=== PATIENT | female | born 1985 | race Caucasian/White ===

== ENCOUNTER 2017-05-17 06:39 | Observation (INO) | payer OTHER ==
[2017-05-17 07:06] LABS: PLATELET COUNT 277 10^3/uL (150-400)
[2017-05-17] MEDS ORDERED: ONDANSETRON 4 MG/2 ML VIAL IVP ONE (07:07)
[2017-05-17] MEDS ORDERED: NS 1,000 ML IV ONE ×2 (07:07→12:19)
[2017-05-17] MEDS ORDERED: HYDROmorphONE/DILAUDID 1 MG/ML INJ IVP ONE (07:07)
--- NOTE | 2017-05-17 07:10 | EDPHY ---
H & P Stated Complaint: R sided stabbing abd pain since 1900 last night with nausea. 8 /10 pain. Time Seen by Provider: 05/17/17 07:01 HPI/ROS: CHIEF COMPLAINT: Abdominal pain HISTORY OF PRESENT ILLNESS: The patient is a 32-year-old female who comes to the emergency department complaining of stabbing abdominal pain. She states that it began last night at 7:00 p.m. It is not been fluctuating but has been constant. She has felt slightly nauseous but has not vomited. No diarrhea. No fever. No urinary symptoms. She did start her period 2 days ago and thought initially that this was the cause but she has never had anything like this before. No history of abdominal surgery. She is monogamous denies any room risk for STD. No discharge. She is a difficult time telling where the pain is generated from. She states that hurts in her right upper quadrant, her right lower quadrant and bilateral CVA. REVIEW OF SYSTEMS: Constitutional: denies: chills, fever, recent illness, recent injury EENTM: denies: blurred vision, double vision, nose congestion Respiratory: denies: cough, shortness of breath Cardiac: denies: chest pain, irregular heart rate, lightheadedness, palpitations Gastrointestinal/Abdominal: See HPI Genitourinary: denies: dysuria, frequency, hematuria, pain Musculoskeletal: denies: joint pain, muscle pain Skin: denies: lesions, rash, jaundice, bruising Neurological: denies: headache, numbness, paresthesia, tingling, dizziness, weakness Hematologic/Lymphatic: denies: blood clots, easy bleeding, easy bruising Immunologic/allergic: denies: HIV/AIDS, transplant EXAM: GENERAL: Well-appearing, well-nourished and in no acute distress. HEAD: Atraumatic, normocephalic. EYES: Pupils equal round and reactive to light, extraocular movements intact, sclera anicteric, conjunctiva are normal. ENT: TMs normal, nares patent, oropharynx clear without exudates. Moist mucous membranes. NECK: Normal range of motion, supple without lymphadenopathy or JVD. LUNGS: Breath sounds clear to auscultation bilaterally and equal. No wheezes rales or rhonchi. HEART: Regular rate and rhythm without murmurs, rubs or gallops. ABDOMEN: Mild right upper quadrant tenderness, no right lower quadrant tenderness, no CVA tenderness. No guarding or rebound no rash BACK: No CVA tenderness, no spinal tenderness, step-offs or deformities EXTREMITIES: Normal range of motion, no pitting or edema. No clubbing or cyanosis. NEUROLOGICAL: Cranial nerves II through XII grossly intact. Normal speech, normal gait. 5/5 strength, normal movement in all extremities, normal sensation PSYCH: Normal mood, normal affect. SKIN: Warm, dry, normal turgor, no visible rashes or lesions. Source: Patient, Family Exam Limitations: No limitations - Personal History LMP (Females 10-55): 1-7 Days Ago Current Tetanus Diphtheria and Acellular Pertussis (TDAP): Unsure - Medical/Surgical History Hx Asthma: No Hx Chronic Respiratory Disease: No Hx Diabetes: No Hx Cardiac Disease: No Hx Renal Disease: No Hx Cirrhosis: No Hx Alcoholism: No Hx HIV/AIDS: No Hx Splenectomy or Spleen Trauma: No Other PMH: none - Family History Significant Family History: No pertinent family hx - Social History Smoking Status: Never smoked Alcohol Use: Sober Drug Use: None Constitutional: Initial Vital Signs Temperature (C) 36.5 C 05/17/17 06:48 Heart Rate 94 05/17/17 06:48 Respiratory Rate 16 05/17/17 06:48 Blood Pressure 119/80 05/17/17 06:48 O2 Sat (%) 98 05/17/17 06:48 O2 Delivery Mode Room Air Allergies/Adverse Reactions: No Known Allergies Allergy (Unverified 05/17/17 06:47) Home Medications: Medication Instructions Recorded Ibuprofen [Motrin (*)] 200 mg PO DAILY PRN 05/17/17 Medical Decision Making - Diagnostics Imaging Results: Imaging Impressions Abdomen Ultrasound 05/17/17 07:07 Impression: Indeterminate exam. Appendicolith versus gas within base of the appendix and the tip of the appendix cannot be diagnostically characterized. Findings discussed with Emergency Department physician, Priyank Kimball on 2017 at 9:17 a.m. Pelvic/Renal Ultrasound 05/17/17 07:07 Impression: 1. Normal uterus. 2. Normal ovaries. No ovarian cyst or evidence of torsion. Findings discussed with Emergency Department physicianPriyank on 2017 at 9:[address] 05/17/17 09:17 Impression: 1. Appendicitis with appendicolith and free fluid. 2. No abscess or pneumoperitoneum. Findings discussed with Emergency Department physician, Priyank Kimball, on at 10:14 a.m. Imaging: Discussed imaging studies w/ callisthenics instructor Radiologist ED Course/Re-evaluation: 9:15 a.m. we discussed the patient's test results. Her lab work is reassuring. Her ultrasound of her gallbladder and pelvis reassuring however her appendix is inconclusive and there may be an EpiPen equal at the base versus gas in small bowel. On re-evaluation the patient does have tenderness now more focused in the right lower quadrant. Will obtain a CT scan for further delineation. 10:15 p.m. we discussed the CT results. I will paged surgery and start antibiotics. Differential Diagnosis: Partial list of the Differential diagnosis considered include but were not limited to; appendicitis, ovarian cyst, pyelonephritis, biliary disease and although unlikely based on the history and physical exam, I also considered , constipation. - Data Points Laboratory Results: Laboratory Results 05/17/17 06:56 05/17/17 06:56 05/17/17 05/17/17 05/17/17 07:15 06:56 06:56 WBC RBC Hgb Hct MCV MCH MCHC RDW Plt Count MPV Neut % (Auto) Lymph % (Auto) [place] % (Auto) Eos % (Auto) Baso % (Auto) Nucleat RBC Rel Count Absolute Neuts (auto) Absolute Lymphs (auto) Absolute Monos (auto) Absolute Eos (auto) Absolute Basos (auto) Absolute Nucleated RBC Immature Gran % Immature Gran # Sodium 141 mEq/L mEq/L (135-145) Potassium 4.3 mEq/L mEq/L (3.5-5.2) Chloride 101 mEq/L mEq/L (97-110) Carbon Dioxide 24 mEq/l mEq/l (22-31) Anion Gap 16 mEq/L mEq/L (8-16) BUN 6 mg/dL L mg/dL (7-23) Creatinine 0.6 mg/dL mg/dL (0.6-1.0) Estimated GFR > 60 Glucose 98 mg/dL mg/dL (70-100) Calcium 10.1 mg/dL mg/dL (8.5-10.4) Beta HCG, Qual NEGATIVE Urine Color YELLOW Urine Appearance CLEAR Urine pH 6.5 (5.0-7.5) Ur Specific [place] <= 1.005 (1.002-1.030) Urine Protein NEGATIVE (NEGATIVE) Urine Ketones NEGATIVE (NEGATIVE) Urine Blood 1+ H (NEGATIVE) Urine Nitrate NEGATIVE (NEGATIVE) Urine Bilirubin NEGATIVE (NEGATIVE) Urine Urobilinogen 0.2 EU EU (0.2-1.0) Ur Leukocyte Esterase NEGATIVE (NEGATIVE) Urine RBC 3-5 /hpf H /hpf (0-3) Urine WBC 0-1 /hpf /hpf (0-3) Ur Epithelial Cells TRACE /lpf /lpf (NONE-1+) Urine Bacteria TRACE /hpf H /hpf (NONE SEEN) Urine Glucose NEGATIVE (NEGATIVE) 05/17/17 06:56 WBC 7.04 10^3/uL 10^3/uL (3.80-9.50) RBC 4.54 10^6/uL 10^6/uL (4.18-5.33) Hgb 14.1 g/dL g/dL (12.6-16.3) Hct 41.8 % % (38.0-47.0) MCV 92.1 fL fL (81.5-99.8) MCH 31.1 pg pg (27.9-34.1) MCHC 33.7 g/dL g/dL (32.4-36.7) RDW 11.9 % % (11.5-15.2) Plt Count 277 10^3/uL 10^3/uL (150-400) MPV 8.8 fL fL (8.7-11.7) Neut % (Auto) 77.2 % H % (39.3-74.2) Lymph % (Auto) 14.8 % L % (15.0-45.0) [place] % (Auto) 6.3 % % (4.5-13.0) Eos % (Auto) 1.1 % % (0.6-7.6) Baso % (Auto) 0.3 % % (0.3-1.7) Nucleat RBC Rel Count 0.0 % % (0.0-0.2) Absolute Neuts (auto) 5.44 10^3/uL 10^3/uL (1.70-6.50) Absolute Lymphs (auto) 1.04 10^3/uL 10^3/uL (1.00-3.00) Absolute Monos (auto) 0.44 10^3/uL 10^3/uL (0.30-0.80) Absolute Eos (auto) 0.08 10^3/uL 10^3/uL (0.03-0.40) Absolute Basos (auto) 0.02 10^3/uL 10^3/uL (0.02-0.10) Absolute Nucleated RBC 0.00 10^3/uL 10^3/uL (0-0.01) Immature Gran % 0.3 % % (0.0-1.1) Immature Gran # 0.02 10^3/uL 10^3/uL (0.00-0.10) Sodium Potassium Chloride Carbon Dioxide Anion Gap BUN Creatinine Estimated GFR Glucose Calcium Beta HCG, Qual Urine Color Urine Appearance Urine pH Ur Specific [place] Urine Protein Urine Ketones Urine Blood Urine Nitrate Urine Bilirubin Urine Urobilinogen Ur Leukocyte Esterase Urine RBC Urine WBC Ur Epithelial Cells Urine Bacteria Urine Glucose Medications Given: Discontinued Medications Ertapenem (Invanz) 1 gm IVP EDNOW ONE PRN Reason: Protocol Stop: 05/17/17 10:17 Last Admin: 05/17/17 10:27 Dose: 1 gm Hydromorphone HCl (Dilaudid) 0.5 mg IVP EDNOW ONE Stop: 05/17/17 07:08 Last Admin: 05/17/17 08:05 Dose: 0.5 mg Sodium Chloride (Ns) 1,000 mls @ 0 mls/hr IV EDNOW ONE; Wide Open PRN Reason: Protocol Stop: 05/17/17 07:08 Last Admin: 05/17/17 08:00 Dose: 1,000 mls Lactated Ringer's (Lr) 1,000 mls @ 0 mls/hr IV ONCE ONE PRN Reason: As Directed Stop: 05/17/17 12:28 Last Admin: 05/17/17 12:35 Dose: 1,000 mls Ketorolac Tromethamine (Toradol) 30 mg IVP EDNOW ONE Stop: 05/17/17 08:39 Last Admin: 05/17/17 08:41 Dose: 30 mg Ondansetron HCl (Zofran) 4 mg IVP EDNOW ONE Stop: 05/17/17 07:08 Last Admin: 05/17/17 08:02 Dose: 4 mg Departure - Departure Disposition: [facility] Acute Clinical Impression: Acute appendicitis Qualifiers: Acute appendicitis type: with localized peritonitis Qualified Code(s): K35.3 - Acute appendicitis with localized peritonitis Condition: Fair
[2017-05-17] MEDS ORDERED: KETOROLAC 30 MG/1 ML SDV IVP ONE (08:38)
[2017-05-17] MEDS ORDERED: IOPAMIDOL (ISOVUE-300) 100 ML BTL ONE (09:46)
[2017-05-17] MEDS ORDERED: ERTAPENEM 1 GM VIAL IVP ONE (10:16)
[2017-05-17] MEDS ORDERED: LR 1,000 ML IV ONE (12:27)
--- NOTE | 2017-05-17 12:49 | PDGENHP ---
History and Physical - Chief Complaint abd pain - History of Present Illness 32 y/o female with one day hx abd pain localizing to the RLQ. Pt was seen at [facility] [place] and referred by Dr. Kimball for surgical consultation. History Information - Allergies/Home Medication List Allergies/Adverse Reactions: No Known Allergies Allergy (Unverified 05/17/17 06:47) Home Medications: NK [No Known Home Meds] 05/17/17 [Last Taken Unknown] I have personally reviewed and updated: family history, medical history, social history, surgical history - Past Medical History no pertinent PMH - Surgical History Additional surgical history: breast biopsy/wisdom teeth - Social History Smoking Status: Never smoked Alcohol Use: Sober Drug Use: None Review of Systems Review of Systems: Constitutional: Reports: no symptoms EENMT: Reports: no symptoms Cardiac: Reports: no symptoms Respiratory: Reports: no symptoms Gastrointestinal: Reports: abdominal pain Genitourinary: Reports: other (currently menstuating) Physical Exam Physical Exam: Temp Pulse Resp BP Pulse Ox 36.8 C 90 16 104/69 98 05/17/17 12:11 05/17/17 12:11 05/17/17 12:11 05/17/17 12:11 05/17/17 12:11 Constitutional: no apparent distress Eyes: anicteric sclera Cardiovascular: regular rate and rhythym Respiratory: no rales or rhonchi, clear to auscultation Gastrointestinal: other (soft/hypoactive bowel sounds/tender RLQ with guarding/ + Rovsing's) Psychiatric: interacting appropriately, not anxious Lab Data & Imaging Review 05/17/17 06:56 05/17/17 06:56 WBC 7.04 10^3/uL (3.80-9.50) 05/17/17 06:56 RBC 4.54 10^6/uL (4.18-5.33) 05/17/17 06:56 Hgb 14.1 g/dL (12.6-16.3) 05/17/17 06:56 Hct 41.8 % (38.0-47.0) 05/17/17 06:56 MCV 92.1 fL (81.5-99.8) 05/17/17 06:56 MCH 31.1 pg (27.9-34.1) 05/17/17 06:56 MCHC 33.7 g/dL (32.4-36.7) 05/17/17 06:56 RDW 11.9 % (11.5-15.2) 05/17/17 06:56 Plt Count 277 10^3/uL (150-400) 05/17/17 06:56 MPV 8.8 fL (8.7-11.7) 05/17/17 06:56 Neut % (Auto) 77.2 % (39.3-74.2) H 05/17/17 06:56 Lymph % (Auto) 14.8 % (15.0-45.0) L 05/17/17 06:56 [place] % (Auto) 6.3 % (4.5-13.0) 05/17/17 06:56 Eos % (Auto) 1.1 % (0.6-7.6) 05/17/17 06:56 Baso % (Auto) 0.3 % (0.3-1.7) 05/17/17 06:56 Nucleat RBC Rel Count 0.0 % (0.0-0.2) 05/17/17 06:56 Absolute Neuts (auto) 5.44 10^3/uL (1.70-6.50) 05/17/17 06:56 Absolute Lymphs (auto) 1.04 10^3/uL (1.00-3.00) 05/17/17 06:56 Absolute Monos (auto) 0.44 10^3/uL (0.30-0.80) 05/17/17 06:56 Absolute Eos (auto) 0.08 10^3/uL (0.03-0.40) 05/17/17 06:56 Absolute Basos (auto) 0.02 10^3/uL (0.02-0.10) 05/17/17 06:56 Absolute Nucleated RBC 0.00 10^3/uL (0-0.01) 05/17/17 06:56 Immature Gran % 0.3 % (0.0-1.1) 05/17/17 06:56 Immature Gran # 0.02 10^3/uL (0.00-0.10) 05/17/17 06:56 Sodium 141 mEq/L (135-145) 05/17/17 06:56 Potassium 4.3 mEq/L (3.5-5.2) 05/17/17 06:56 Chloride 101 mEq/L (97-110) 05/17/17 06:56 Carbon Dioxide 24 mEq/l (22-31) 05/17/17 06:56 Anion Gap 16 mEq/L (8-16) 05/17/17 06:56 BUN 6 mg/dL (7-23) L 05/17/17 06:56 Creatinine 0.6 mg/dL (0.6-1.0) 05/17/17 06:56 Estimated GFR > 60 05/17/17 06:56 Glucose 98 mg/dL (70-100) 05/17/17 06:56 Calcium 10.1 mg/dL (8.5-10.4) 05/17/17 06:56 Beta HCG, Qual NEGATIVE 05/17/17 06:56 Urine Color YELLOW 05/17/17 07:15 Urine Appearance CLEAR 05/17/17 07:15 Urine pH 6.5 (5.0-7.5) 05/17/17 07:15 Ur Specific [place] <= 1.005 (1.002-1.030) 05/17/17 07:15 Urine Protein NEGATIVE (NEGATIVE) 05/17/17 07:15 Urine Ketones NEGATIVE (NEGATIVE) 05/17/17 07:15 Urine Blood 1+ (NEGATIVE) H 05/17/17 07:15 Urine Nitrate NEGATIVE (NEGATIVE) 05/17/17 07:15 Urine Bilirubin NEGATIVE (NEGATIVE) 05/17/17 07:15 Urine Urobilinogen 0.2 EU (0.2-1.0) 05/17/17 07:15 Ur Leukocyte Esterase NEGATIVE (NEGATIVE) 05/17/17 07:15 Urine RBC 3-5 /hpf (0-3) H 05/17/17 07:15 Urine WBC 0-1 /hpf (0-3) 05/17/17 07:15 Ur Epithelial Cells TRACE /lpf (NONE-1+) 05/17/17 07:15 Urine Bacteria TRACE /hpf (NONE SEEN) H 05/17/17 07:15 Urine Glucose NEGATIVE (NEGATIVE) 05/17/17 07:15
[2017-05-17] MEDS ORDERED: MIDAZOLAM 2 MG/2 ML VIAL ONE (13:07)
[2017-05-17] MEDS ORDERED: PROPOFOL/EMULSION 500 MG/50 ML BOTTLE IV ONE (13:08)
[2017-05-17] MEDS ORDERED: BUPIVACAINE 0.25% 30 ML SDV ONE (13:12)
[2017-05-17] MEDS ORDERED: fentaNYL 100 MCG/2 ML INJ ONE ×2 (13:14→14:49)
[2017-05-17] MEDS ORDERED: HYDROCODONE/APAP 5/325 TAB PO PRN (13:40)
[2017-05-17] MEDS ORDERED: NALOXONE HCL 0.4 MG/ML INJ IVP PRN (13:40)
[2017-05-17] MEDS ORDERED: ONDANSETRON 4 MG/2 ML VIAL IVP PRN ×2 (13:40→14:28)
[2017-05-17] MEDS ORDERED: MEPERIDINE 25 MG/ML SYR IVP PRN (13:40)
[2017-05-17] MEDS ORDERED: PROMETHAZINE HCL 25 MG/ML INJ IVP PRN (13:40)
[2017-05-17] MEDS ORDERED: OXYCODONE/APAP 5/325 TAB PO PRN (13:40)
[2017-05-17] MEDS ORDERED: HYDROmorphONE/DILAUDID 1 MG/ML INJ IVP PRN ×2 (13:40→14:28)
[2017-05-17] MEDS ORDERED: ALBUTEROL 3 ML DEYVIAL IH PRN (13:40)
[2017-05-17] MEDS ORDERED: fentaNYL 100 MCG/2 ML INJ IVP PRN (13:40)
[2017-05-17] MEDS ORDERED: DEXAMETHASONE 4 MG/ML VIAL IVP PRN (13:40)
--- NOTE | 2017-05-17 13:52 | PDANEPAE ---
ANE History of Present Illness here for lap abi EMMA Past Medical History - Cardiovascular History Hx Hypertension: No Hx Arrhythmias: No Hx Chest Pain: No Hx Coronary Artery / Peripheral Vascular Disease: No Hx CHF / Valvular Disease: No Hx Palpitations: No - Pulmonary History Hx COPD: No Hx Asthma/Reactive Airway Disease: No Hx Recent Upper Respiratory Infection: No Hx Oxygen in Use at Home: No Hx Sleep Apnea: No - Endocrine History Hx Diabetes: No ANE Review of Systems Review of systems is: negative Review of Systems: - Exercise capacity Exercise capacity: >=4 METS ANE Patient History - Allergies Allergies/Adverse Reactions: No Known Allergies Allergy (Unverified 05/17/17 06:47) - Home Medications Home medications: home medication list seen and reviewed Home Medications: Ibuprofen [Motrin (*)] 200 mg PO DAILY PRN 05/17/17 [Last Taken Unknown] - NPO status NPO Status: no food or drink >8 hours NPO Since - Liquids (Date): 05/16/17 NPO Since - Liquids (Time): 22:00 NPO Since - Solids (Date): 05/16/17 NPO Since - Solids (Time): 22:00 - Smoking Hx Smoking Status: Never smoked - Alcohol Use Alcohol Use: Sober ANE Labs/Vital Signs - Labs Result Diagrams: 05/17/17 06:56 05/17/17 06:56 - Vital Signs Vital Signs: reviewed preoperatively; see RN documention for details Blood Pressure: 104/69 Heart Rate: 90 Respiratory Rate: 16 O2 Sat (%): 98 Height: 167.64 cm Weight: 52.617 kg ANE Physical Exam - Airway Neck exam: FROM Mallampati Score: Class 1 - Pulmonary Pulmonary: no respiratory distress - Cardiovascular Cardiovascular: regular rate and rhythym - ASA Status ASA Status: I ANE Anesthesia Plan Anesthesia Plan: general endotracheal anesthesia
[2017-05-17] MEDS ORDERED: SUGAMMADEX SODIUM 200 MG/2 ML VIAL IVP ONE (14:06)
[2017-05-17] MEDS ORDERED: METOCLOPRAMIDE 10 MG/2 ML VIAL IVP PRN (14:28)
[2017-05-17] MEDS ORDERED: MAGNESIUM HYDROXIDE 30 ML UDCUP PO PRN (14:28)
--- NOTE | 2017-05-17 14:28 | POSTOPPROG ---
Post Op Note Date of Operation: 05/17/17 Surgeon: Bipin Johnston (, FACS) [employer] Supervisor: Christina Guajardo RN Anesthesiologist: Tye Aguila Anesthesia: GET(General Endotracheal) Pre-op Diagnosis: appendicitis Post-op Diagnosis: same Procedure: appendectomy Findings: acute appendicitis Inf/Abcess present in the surg proc area at time of surgery?: Yes Depth: Organ Space EBL: Minimal (5 ml)
[2017-05-17] MEDS ORDERED: LR 1,000 ML IV SCH (14:30)
--- NOTE | 2017-05-17 15:19 | GOP ---
[f rep st] OPERATIVE REPORT DATE OF OPERATION: SURGEON: Bipin Johnston MD, FACS FILM TESTS CHECKER: Christina Nix RN. ANESTHESIA: General endotracheal. ANESTHESIOLOGIST: Tye Aguila MD. PREOPERATIVE DIAGNOSIS: Acute appendicitis. POSTOPERATIVE DIAGNOSIS: Acute appendicitis. PROCEDURE PERFORMED: Appendectomy. FINDINGS: Acute appendicitis without perforation or gangrene. ESTIMATED BLOOD LOSS: 5 mL. DESCRIPTION OF PROCEDURE: After informed consent was obtained, the patient was brought to the operating room and placed under general anesthesia. The abdomen was prepped and draped in the usual fashion. Before proceeding, a time-out and identification of the patient was performed. 0.25% Marcaine was used to infiltrate the abdominal wall lateral to the planned incision site. The incision was made obliquely below McBurney point and carried through the skin and subcutaneous tissues, Mary fascia, external oblique fascia. Internal oblique and transverse abdominis muscles were split at the rectus border. Peritoneum was entered and explored. The appendix was mobilized into the incision and noted to be markedly distended but without foul odor, separation, perforation, or gangrene. The mesoappendix was edematous. This was clamped, divided, and ligated with 2-0 Vicryl ligatures. The base of the appendix was from the cecum with a single firing of the DUSTIN stapler, and the appendix delivered from the field. Hemostasis appeared secure. The paracolic gutter and pelvis were copiously irrigated with normal saline until the effluent was clear. The peritoneum was closed with continuous running 3-0 Vicryl suture. Anterior fascia was closed with 0 PDS suture. Subcutaneous tissues were reapproximated with 2-0 Vicryl suture. The skin was closed with 4-0 Monocryl suture in a subcuticular fashion. Mastisol and Steri-Strips were applied. The patient was returned extubated to the recovery room in satisfactory condition. Needle, sponge, and instrument count were correct. COMPLICATIONS: None. /[id number]/MODL MTDD
[2017-05-17 16:14] VITALS: RESP 17; TEMP 97.2
[2017-05-17] MEDS ORDERED: FLU VACC QS 2017-18 (3YR+)/PF 0.5 ML SYR (FLUARIX QUAD) IM ONE (17:22)
[2017-05-17] MEDS ORDERED: IBUPROFEN 600 MG TAB PO SCH (17:45)
[2017-05-17 18:41] VITALS: BP 106/66; PULSE 93; O2SAT 95
--- NOTE | 2017-05-17 19:25 | PDDCSUM ---
Discharge Summary Discharge Summary: Mattie was transferred from [facility] [place] for surgical management of appendicitis. She received one gram Ertapenam at [facility] [place]. She underwent open appendectomy and was admitted for observation after surgery. She tolerated a liquid diet and oral medications and was discharged home on the evening of surgery. She was instructed in diet, activity, wound care. She will follow up in my office next week. DC medications: [place] 5/325 #20 Senokot-S #30 S MD Preston, FACS
[2017-05-17] MEDS ORDERED: SENNOSIDES/DOCUSATE SODIUM TAB PO SCH (21:00)
== END 2017-05-17 19:55 | disposition home or self-care (01) ==
LOC: CED 06:39 → CEDHOLD 10:18 → FOB 11:49
PROVIDERS: ADMIT Surgery; ATTEND Surgery
PROC: 0DTJ0ZZ Resection of Appendix, Open Approach (ICD-10-PCS; principal; 2017-05-17 12:45)
DX: K35.80 Unspecified acute appendicitis (principal); Z23 Encounter for immunization
CPT/HCPCS: 44950; 74177; 76705; 76856; 90471; G0378; 80048-PO; 81003-PO; 81015-PO; 84703-PO; 85025-PO; 96374; G0008; J1170; J1335; J1885; J2250; J2405; J2704; J3010; Q9967

== ENCOUNTER 2017-09-17 20:27 | Emergency (ER) | payer OTHER ==
[2017-09-17] MEDS ORDERED: ACETAMINOPHEN 500 MG TAB PO ONE (20:44)
[2017-09-17] MEDS ORDERED: IBUPROFEN 600 MG TAB PO ONE (20:44)
--- NOTE | 2017-09-17 21:53 | EDPHY ---
H & P Stated Complaint: L foot pain 2nd to injury. Time Seen by Provider: 09/17/17 20:41 HPI/ROS: CHIEF COMPLAINT:left foot pain HISTORY OF PRESENT ILLNESS:Healthy 32 year old female who lost her balance while slacklining. She is here with left foot pain. She is not certain how she landed or if there was a twisting mechanism of injury. She denies other injuries --she did not hit her head. No ankle or knee pain. She denies foot numbness or weakness. The pain is worse with weight bearing, she is able to walk. REVIEW OF SYSTEMS: A ten point review of systems was performed and is negative with the exception of the items mentioned in the HPI. Past medical history: Negative Past surgical history: Appendectomy Social history: She lives with her life partner, Phani. No tobacco. She works at [employer]. General Appearance: Alert. Vital signs reviewed. Focused exam performed. Neck: Nonteder to palpation over midline. Respiratory: Lungs are clear to auscultation; no wheezes, rales, or rhonchi. Cardiovascular: Regular rate and rhythm; no murmur, rub, or gallop. Gastrointestinal: Abdomen is soft and nontender, no masses or organomegaly, bowel sounds normal. Skin: Warm and dry, no rashes on exposed skin, normal color. Back: Nontender to palpation over the thoracolumbar spine. Extremities: Pain with palpation along lateral left foot. No tarsal tenderness. No obvious deformity, swelling, or bruising. FAROM toes, ankle, knee, hip on left. Pulse: 2+ left DP Neurological: Alert and oriented. Moving all four extremities easily and equally. Sensation intact to light touch over left LE. Psychiatric: Normal affect. - Personal History LMP (Females 10-55): 8-14 Days Ago Current Tetanus/Diphtheria Vaccine: Unsure Current Tetanus Diphtheria and Acellular Pertussis (TDAP): Unsure - Medical/Surgical History Hx Asthma: No Hx Chronic Respiratory Disease: No Hx Diabetes: No Hx Cardiac Disease: No Hx Renal Disease: No Hx Cirrhosis: No Hx Alcoholism: No Hx HIV/AIDS: No Hx Splenectomy or Spleen Trauma: No Other PMH: Appy. - Social History Smoking Status: Never smoked Constitutional: Initial Vital Signs Temperature (C) 36.8 C 09/17/17 20:40 Heart Rate 81 09/17/17 20:40 Respiratory Rate 16 09/17/17 20:40 Blood Pressure 126/82 H 09/17/17 20:40 O2 Sat (%) 99 09/17/17 20:40 O2 Delivery Mode Room Air Allergies/Adverse Reactions: No Known Allergies Allergy (Verified 09/17/17 20:40) Home Medications: Medication Instructions Recorded Malena Allergy 09/17/17 Medical Decision Making ED Course/Re-evaluation: Left foot xray reviewed by me. No evidence of fracture or dislocation. KYM wrap applied to left foot and ankle. Danger signs reviewed. OTC pain medication recommended, RICE therapy. - Data Points Medications Given: Discontinued Medications Acetaminophen (Tylenol) 1,000 mg PO EDNOW ONE Stop: 09/17/17 20:45 Last Admin: 09/17/17 20:48 Dose: 1,000 mg Ibuprofen (Motrin) 600 mg PO EDNOW ONE Stop: 09/17/17 20:45 Last Admin: 09/17/17 20:48 Dose: 600 mg Departure - Departure Disposition: Home, Routine, Self-Care Clinical Impression: Foot contusion Qualifiers: Encounter type: initial encounter Laterality: left Qualified Code(s): S90.32XA - Contusion of left foot, initial encounter Condition: Good Instructions: Foot Contusion (ED) Referrals: Dania Luke MD [[facility] [place] [place] Primary Care Provider] - As per Instructions
[2017-09-17 22:09] VITALS: BP 113/78
== END 2017-09-17 22:06 | disposition home or self-care (01) ==
LOC: CED 20:27
DX: S90.32XA Contusion of left foot, initial encounter (principal); X58.XXXA Exposure to other specified factors, initial encounter
CPT/HCPCS: 73630-PO